=== PATIENT | female | born 1945 | race Two or more races ===

== ENCOUNTER 2018-06-21 08:20 | Outpatient (CLI) | payer MEDICARE, OTHER ==
[2018-06-21 09:14] LABS: CALCIUM, SERUM 8.4 mg/dL (8.5-10.1); CARBON DIOXIDE 26 mmol/L (21-32); CHLORIDE 102 mmol/L (98-107); CREATININE 0.6 mg/dL (0.6-1.3); GLUCOSE 99 mg/dL (74-106); POTASSIUM 3.6 mmol/L (3.5-5.1); SODIUM SERUM 138 mmol/L (136-145); UREA NITROGEN, BLOOD 11 mg/dL (7-18)
[2018-06-21] MEDS ORDERED: CT SWABBABLE VALVE TRANS SET 1 EA INFUS.SET MC ONE (09:47)
[2018-06-21] MEDS ORDERED: IV NS 0.9% 250 ML IV ONE (09:47)
[2018-06-21] MEDS ORDERED: IOHEXOL-350 100 ML VIAL IV ONE (09:47)
== END 2018-06-21 23:59 | disposition home or self-care (01) ==
LOC: CARD 08:20
PROVIDERS: ATTEND Internal Medicine Cardiovascular Disease
DX: I73.9 Peripheral vascular disease, unspecified (principal); I10 Essential (primary) hypertension; I65.21 Occlusion and stenosis of right carotid artery; R29.810 Facial weakness
CPT/HCPCS: 36415; 75635; 80048; 93880; J7050; Q9967